=== PATIENT | female | born 1930 | race Caucasian/White ===

== ENCOUNTER 2018-04-23 16:48 | Inpatient (IN) | payer OTHER ==
[~2018-04-23] VITALS: Ht 157.5 cm; Wt 49.9 kg
[~2018-04-23 16:48] MED LIST: TOPROL XL100 M1
[2018-04-23] MEDS ORDERED: DAFLONEX-XL TA1 EACH (17:10)
[2018-04-23] MEDS ORDERED: MICARDIS80 MG (17:10)
[2018-04-23] MEDS ORDERED: TOPROL XL50 M1 (17:11)
[2018-05-11] MEDS ORDERED: LOVENOX60 MG/0.6 SUBCUTANEO (10:51)
[2018-05-11] MEDS ORDERED: CARDIZEM60 MG PO (10:51)
[2018-05-11] MEDS ORDERED: LOSARTAN POTASS50 MG PO (10:51)
[2018-05-11] MEDS ORDERED: TOPROL XL100 M1 PO (10:51)
[2018-05-12] MEDS ORDERED: TRAMADOL HCL50 MG PO (07:34)
== END 2018-05-12 12:32 | DRG 252 ==
LOC: ER 16:48 → SURH 20:05 → SEC-K 20:05 → MEDI 20:55 → SURH 20:55
PROVIDERS: Radiology Vascular & Interventional Radiology
PROC: BP29ZZZ Computerized Tomography (CT Scan) of Left Shoulder (ICD-10-PCS; 2018-04-24)
PROC: B246ZZZ Ultrasonography of Right and Left Heart (ICD-10-PCS; 2018-04-24)
PROC: 4A12X4Z Monitoring of Cardiac Electrical Activity, External Approach (ICD-10-PCS; 2018-04-24)
PROC: B54NZZZ Ultrasonography of Left Upper Extremity Veins (ICD-10-PCS; 2018-04-26)
PROC: B34JZZZ Ultrasonography of Left Upper Extremity Arteries (ICD-10-PCS; 2018-04-26)
PROC: 3E0F7GC Introduction of Other Therapeutic Substance into Respiratory Tract, Via Natural or Artificial Opening (ICD-10-PCS; 2018-04-28)
PROC: 4A033R1 Measurement of Arterial Saturation, Peripheral, Percutaneous Approach (ICD-10-PCS; 2018-04-29)
PROC: B54DZZZ Ultrasonography of Bilateral Lower Extremity Veins (ICD-10-PCS; 2018-05-04)
PROC: 06H03DZ Insertion of Intraluminal Device into Inferior Vena Cava, Percutaneous Approach (ICD-10-PCS; principal; 2018-05-09 17:00)
DX: I48.0 Paroxysmal atrial fibrillation (principal); J81.0 Acute pulmonary edema; S42.292A Other displaced fracture of upper end of left humerus, initial encounter for closed fracture; J91.8 Pleural effusion in other conditions classified elsewhere; I82.A12 Acute embolism and thrombosis of left axillary vein; I82.411 Acute embolism and thrombosis of right femoral vein; I82.432 Acute embolism and thrombosis of left popliteal vein; N39.0 Urinary tract infection, site not specified; E87.1 Hypo-osmolality and hyponatremia; D68.69 Other thrombophilia; X58.XXXA Exposure to other specified factors, initial encounter; Y93.89 Activity, other specified; Y92.89 Other specified places as the place of occurrence of the external cause; Y99.8 Other external cause status; R09.02 Hypoxemia; R33.8 Other retention of urine; I34.0 Nonrheumatic mitral (valve) insufficiency; S40.012A Contusion of left shoulder, initial encounter; S43.015A Anterior dislocation of left humerus, initial encounter; I35.1 Nonrheumatic aortic (valve) insufficiency; Z66 Do not resuscitate; R06.03 Acute respiratory distress; B96.29 Other Escherichia coli [E. coli] as the cause of diseases classified elsewhere; B95.2 Enterococcus as the cause of diseases classified elsewhere; Z53.09 Procedure and treatment not carried out because of other contraindication

== ENCOUNTER 2018-06-01 11:12 | Inpatient (IN) | payer OTHER ==
[~2018-06-01] VITALS: Ht 154.9 cm; Wt 52.2 kg
[~2018-06-01 11:12] MED LIST changes: +CARDIZEM60 MG PO; +DAFLONEX-XL TA1 EACH; +LOSARTAN POTASS50 MG PO; +LOVENOX60 MG/0.6 SUBCUTANEO; +MICARDIS80 MG; +TOPROL XL100 M1 PO; +TOPROL XL50 M1; +TRAMADOL HCL50 MG PO
[2018-06-01] MEDS ORDERED: LOVENOX60 MG/0.6 (11:26)
[2018-06-01] MEDS ORDERED: MACRODANTIN100 M1 (11:27)
[2018-06-17] MEDS ORDERED: CARDIZEM60 MG PO (14:26)
[2018-06-17] MEDS ORDERED: TOPROL XL100 M1 PO (14:26)
[2018-06-17] MEDS ORDERED: XOPENEX0.63 MG/3 IH (14:26)
== END 2018-06-17 15:21 | disposition other institution (70) | DRG 871 ==
LOC: ER 11:12 → MEDJ 13:59 → MEDI 13:59 → MEDJ 13:59
PROC: 4A033R1 Measurement of Arterial Saturation, Peripheral, Percutaneous Approach (ICD-10-PCS; 2018-06-01)
PROC: 3E0F7GC Introduction of Other Therapeutic Substance into Respiratory Tract, Via Natural or Artificial Opening (ICD-10-PCS; 2018-06-01)
PROC: 4A12X4Z Monitoring of Cardiac Electrical Activity, External Approach (ICD-10-PCS; principal; 2018-06-02)
PROC: B54PZZZ Ultrasonography of Bilateral Upper Extremity Veins (ICD-10-PCS; 2018-06-03)
PROC: BW24ZZZ Computerized Tomography (CT Scan) of Chest and Abdomen (ICD-10-PCS; 2018-06-04)
PROC: CB121ZZ Planar Nuclear Medicine Imaging of Lungs and Bronchi using Technetium 99m (Tc-99m) (ICD-10-PCS; 2018-06-04)
PROC: 02HV33Z Insertion of Infusion Device into Superior Vena Cava, Percutaneous Approach (ICD-10-PCS; 2018-06-05)
PROC: 5A09457 Assistance with Respiratory Ventilation, 24-96 Consecutive Hours, Continuous Positive Airway Pressure (ICD-10-PCS; 2018-06-08)
DX: A41.9 Sepsis, unspecified organism (principal); R65.21 Severe sepsis with septic shock; J81.0 Acute pulmonary edema; J96.01 Acute respiratory failure with hypoxia; I50.33 Acute on chronic diastolic (congestive) heart failure; N39.0 Urinary tract infection, site not specified; J91.8 Pleural effusion in other conditions classified elsewhere; J84.116 Cryptogenic organizing pneumonia; B96.5 Pseudomonas (aeruginosa) (mallei) (pseudomallei) as the cause of diseases classified elsewhere; I11.0 Hypertensive heart disease with heart failure; Z66 Do not resuscitate; I48.0 Paroxysmal atrial fibrillation; Z74.01 Bed confinement status; E87.6 Hypokalemia